=== PATIENT | male | born 1960 | race Caucasian/White ===

== ENCOUNTER 2016-08-30 21:49 | Emergency (ER) | payer OTHER ==
[~2016-08-30] VITALS: Ht 170.2 cm; Wt 104.3 kg
[~2016-08-30 21:49] MED LIST: ENULOSE10 GM/15 M PO; FOLIC ACID 1 MG PO; FUROSEMIDE40 MG PO; OXYCODONE HYDRO30 MG PO; OXYCODONE5 MG PO; PROPRANOLOL HYD10 MG PO; SPIRONOLACTONE100 MG PO; VITAMIN B-150 MG PO; VITAMIN D32000 I1 PO; XIFAXAN550 MG PO
[2016-08-30 22:11] VITALS: BP 145/69
--- NOTE | 2016-08-30 23:27 | ED HAND/WRIST INJURY COMPLAINT ---
History of Present Illness General Chief Complaint: Hand or Wrist Injury Stated Complaint: PT CUT HIS FINGER ON THE RT HAND RING FINGER Source: patient, family Exam Limitations: no limitations Vital Signs & Intake/Output Vital Signs & Intake/Output Vital Signs Date Time Temp Pulse Resp B/P B/P Pulse O2 O2 Flow FiO2 Mean Ox Delivery Rate 08/30 2210 97.9 70 20 145/69 96 Room Air ED Intake and Output 08/31 0000 08/30 1200 Intake Total Output Total Balance Patient 230 lb Weight Weight Reported by Patient Measurement Method Allergies Coded Allergies: No Known Allergies (08/30/16) Reconcile Medications CHOLECALCIFEROL (VITAMIN D3) (Vitamin D-3) 2,000 UNIT CAPSULE 1 SGL PO DAILY SUPPLEMENT (Reported) Folic Acid 1 MG TABLET 1 MG PO DAILY FOLIC ACID SUPPLEMENT (Reported) Furosemide 40 MG TABLET 1 TAB PO BID DIURETIC (Reported) Lactulose (Enulose) 10 GRAM/15 ML SOLUTION 30 ML PO BID AMMONIA LEVELS ( Reported) OXYCODONE HCL (Oxycodone Hydrochloride) 30 MG TABLET 1 TAB PO TID PAIN ( Reported) Oxycodone HCl 10 MG TABLET 1 TAB PO 4XDP PAIN (Reported) Oxycodone HCl (Oxycontin) 30 MG TAB.ER.12H 1 TAB PO TID PAIN (Reported) Oxycodone Hydrochloride (Oxycodone) 5 MG TAB 1 TAB PO Q6P PRN breakthrough pain Propranolol Hydrochloride 10 MG TAB 1 TAB PO TID BP/LIVER (Reported) Rifaximin (Xifaxan) 550 MG TAB 1 TAB PO BID LIVER (Reported) Spironolactone 100 MG TAB 1 TAB PO BID DIURETIC (Reported) Thiamine (Vitamin B-1) 50 MG TAB 100 MG PO DAILY SUPPLEMENT (Reported) Trazodone HCl 50 MG TABLET 1 TAB PO QPM SLEEP (Reported) Triage Note: TRIAGE: PT TO ER WITH C/C LACERATION TO R RING FINGER S/P INJURY APPROX 20:30. STATES CUT IT ON A MANDOLIN KNIFE AND HAS BEEN UNABLE TO CONTROL BLEEDING. HAS GAUZE DRESSING IN PLACE WHICH IS CLEAN/DRY/INTACT. Triage Nurses Notes Reviewed? yes HPI: Patient is a 55 year old male presents complaining of laceration to his right ring finger. Patient was using a mandolin slicer when he accidentally lacerated his finger. Injury occurred at approximately 8pm this evening. Pain is a burning sensation, currently moderate to severe. Patient has had a tetanus immunization within the past 5 years. Patient is right hand dominant. Denies decreased range of motion. (JO HUTSON) Past History Travel History Traveled to [place] past 21 day No Medical History Any Pertinent Medical History? 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 No (JO HUTSON) Review of Systems Review of Systems Constitutional: Reports: no symptoms. Musculoskeletal: Reports: see HPI, back pain (chronic, unchanged), neck pain (chronic, unchanged) . Skin: Reports: see HPI. Neurological/Psychological: Denies: numbness, paresthesia. Hematologic/Endocrine: Reports: bleeding (from wound). Immunologic/Allergic: Reports: no symptoms. (JO HUTSON) Physical Exam Physical Exam General Appearance: well developed/nourished, alert, awake Head: atraumatic, normal appearance Eyes: Bilateral: normal appearance. Ears, Nose, Throat: hearing grossly normal Neck: normal inspection, supple, full range of motion Cardiovascular/Respiratory: no respiratory distress Back: normal range of motion Wrist Right: normal range of motion, normal inspection Hand Left: normal inspection, normal range of motion Hand Right: 1 cm skin avulsion ring finger distal finger tip. Full range of motion. Neurologic/Tendon: normal sensation, normal motor functions, normal tendon functions Skin: warm/dry (JO HUTSON) Progress Differential Diagnosis: skin avulsion Plan of Care: Procedure note: Tourniquet tied around base of right ring finger. Dermabond placed over skin avulsion. After dermabond dried a surgicel dressing was placed to the area. (JO HUTSON) Departure Departure Time of Disposition: 2347 Disposition: HOME OR SELF CARE Condition: Stable Clinical Impression Primary Impression: Avulsion of skin of finger Qualifiers: Encounter type: initial encounter Qualified Code: S61.209A - Unspecified open wound of unspecified finger without damage to nail, initial encounter Referrals: KENNEY PARKINSON,EMERY Santa (PCP/Family) Additional Instructions: Keep the dressing on for 2 days. Gently soak off the dressing in 2 days and then change the dressing daily. Return to the ER if bleeding through the dressing, redness spreading from the wound, fevers, pus from the wound or worsening of symptoms. Departure Forms: Customer Survey General Discharge Information (JO HUTSON) PA/ROLL REPAIRER Co-Sign Statement Statement: ED Attending supervision documentation- [] I saw and evaluated the patient. I have also reviewed all the pertinent lab results and diagnostic results. I agree with the findings and the plan of care as documented in the PA's/ROLL REPAIRER's documentation. [x] I have reviewed the ED Record and agree with the PA's/ROLL REPAIRER's documentation. [] Additions or exceptions (if any) to the PAs/ROLL REPAIRER's note and plan are summarized below: [] (PARVIN PARKINSON,YOUNG Smith)
[2016-08-31] MEDS ORDERED: OXYCONTIN30 M1 PO (00:02)
[2016-08-31] MEDS ORDERED: OXYCODONE HCL10 M2 PO (00:02)
[2016-08-31] MEDS ORDERED: TRAZODONE HCL50 M1 PO (00:02)
== END 2016-08-31 00:05 ==
LOC: ERH 21:49
DX: S61.214A Laceration without foreign body of right ring finger without damage to nail, initial encounter (principal); W27.8XXA Contact with other nonpowered hand tool, initial encounter; Y93.G1 Activity, food preparation and clean up